=== PATIENT | female | born 1990 | race Caucasian/White ===

== ENCOUNTER 2023-07-14 04:16 | Day surgery (SDC) | payer OTHER ==
[2023-07-12 12:25] VITALS: BMI 22.9
[2023-07-14] MEDS ORDERED: MIDAZOLAM HCL 2 MG/2 ML SINGLE DOSE VIAL ONE (10:07)
[2023-07-14] MEDS ORDERED: FERRIC SUBSULFATE 500 ML BOTTLE TP ONE (10:34)
[2023-07-14] MEDS ORDERED: IODINE/POTASSIUM IODIDE 5%/10% 14 ML BOTTLE NR ONE (10:34)
[2023-07-14] MEDS ORDERED: oxyCODONE HCL 5 MG TABLET PO PRN (11:03)
[2023-07-14] MEDS ORDERED: ONDANSETRON 4 MG/2 ML VIAL IVPUSH PRN (11:07)
[2023-07-14] MEDS ORDERED: ACETAMINOPHEN 325 MG TABLET (FP) PO PRN (11:07)
[2023-07-14] MEDS ORDERED: IBUPROFEN 400 MG TABLET (FP) PO PRN (11:07)
[2023-07-14] MEDS ORDERED: LACTATED RINGERS SOLUTION 1,000 ML IV SCH (11:15)
[2023-07-14 12:35] VITALS: RESP 20
[2023-07-14 16:07] VITALS: BP 126/63; PULSE 73; TEMP 98.4
== END 2023-07-14 13:35 | disposition home or self-care (01) ==
LOC: JASU-SURG 04:16
PROVIDERS: ATTEND Specialist
PROC: 0UBC8ZX Excision of Cervix, Via Natural or Artificial Opening Endoscopic, Diagnostic (ICD-10-PCS; principal; 2023-07-14 09:30)
DX: N87.9 Dysplasia of cervix uteri, unspecified (principal)
CPT/HCPCS: 81025; 88307-TC; 88341-TC; 88342-TC; 94760